=== PATIENT | male | born 1965 | race Caucasian/White ===

== ENCOUNTER 2023-07-31 12:12 | Emergency (ER) | payer OTHER, SELFPAY ==
--- OUTSIDE RECORDS SUMMARY | 2023-07-31 12:16 | XMS REPORT | Continuity of Care Document ---
Author Name Unknown Address [address] [facility] [address] [place] [address] [facility] thconnect Address [address] [facility] [address] [place] [address] Care Team Providers Care Primary Teaching Assistant Name Role Phone Praful Joiner MD Primary Care Physician [phone] Praful Joiner MD Attending Clinician [phone] PRAFUL JOINER Attending Clinician Unavailable Doctor Unassigned, [place] Attending Clinician U navailable NWATHAD ACA Attending Clinician Unavailable AMY LAGUERRE Attending Clinician Unavailable AMY LAGUERRE Attending Clinician Unavailable Lab, Ang - Db Attending Clinician Unavailable Mei Canela Attending Clinician [phone] MEI MURPHY Attending Clinician Unavailable THIAGO TAYLOR Attending Clinician Unavailable Thiago Covarrubias Attending Clinician [phone] Payers Payer Name Policy Type Policy Number Effective Date Expirati on Date Source Problems Condition Name Condition Details Condition Category Status Onset Date Resolution Date Last Treatment Date Treating Clinician Comments Source Acute left-sided low back pain without sciatica Acute left-sided low back pain without sciatica Disease Active 2021-04-11 00:00: 00 [facility] Depression , unspecifie d depression type Depression , unspecifie d depression type Disease Active 2020-04 0 00:00: 00 [facility] Insomnia, unspecifie d type Insomnia, unspecifie d type Disease Active 2020-04 0 00:00: 00 [facility] Primary hypertensi on Primary hypertensi on Disease Active 2020-04 020 00:00: 00 [facility] Allergies, Adverse Reactions, Alerts Allergy Name Allergy Type Status Severity Reaction(s) Onset Date Inactive Date Treating Clinician Comments Source Sulfa (Sulfona mide Antibiot ics) Propensi ty to adverse reaction s Active Anaphylaxis 09-19 00:00: 00 [facility] SULFA (SULFONA MIDE ANTIBIOT ICS) Drug Class Active High Anaphylaxis 09-19 00:00: 00 [facility] Social History Social Habit Start Date Stop Date Quantity Comments Source History of tobacco use Cigarette Smoker [facility] Alcohol intake 2023-05-04 00:00:00 2023-05-04 00:00:00 Ex-drinker (finding) [facility] History of Social function 2023-05-04 00:00:00 2023-05-04 00:00:00 [facility] Exposure to SARS-CoV-2 (event) 2022-06-22 00:00:00 2022-07-02 15:08:00 Not sure [facility] Cigarettes smoked current (pack per day) - Reported 2020-09-19 00:00:00 2020-09-19 00:00:00 [facility] Cigarette pack-years 2020-09-19 00:00:00 2020-09-19 00:00:00 [facility] Tobacco use and exposure 2020-09-19 00:00:00 2020-09-19 00:00:00 Smokeless tobacco non-user [facility] Sex Assigned At 1965 00:00:00 1965 00:00:00 [facility] Smoking Status Start Date Stop Date Source Smokes tobacco daily 2020-09-19 00:00:00 [facility] Medications Ordered Medication Name Filled Medication Name Start Date Stop Date Current Medication? Ordering Clinician Indication Dosage Frequency Signature (SIG) Comments Components Source traZODone 100 mg tablet 05-04 00:00: 00 Yes [id number] 100mg Take 1 tablet by mouth at bedtime. [facility] losartan 25 mg tablet 05-04 00:00: 00 Yes [id number] 25mg Take 1 tablet by mouth every morning. [facility] FLUoxetine 40 mg capsule 05-04 00:00: 00 Yes [id number] Take 1 capsule by mouth once daily in the morning [facility] atorvastati n 20 mg tablet 05-04 00:00: 00 Yes [id number] Take 1 tablet by mouth in the evening [facility] pioglitazon e 30 mg tablet 05-04 00:00: 00 Yes [id number] 30mg Take 1 tablet by mouth in the morning. [facility] metformin ER 500 mg 24 hr tablet 05-04 00:00: 00 Yes [id number] 1000mg Take 2 tablets by mouth in the morning and 2 tablets in the evening. Take with meals. [facility] gabapentin 300 mg capsule 05-04 00:00: 00 Yes [id number] 300mg Take 1 capsule by mouth in the morning and 1 capsule at noon and 1 capsule in the evening. [facility] traZODone 100 mg tablet 05-01 00:00: 00 05-04 00:00 :00 No [id number] 100mg Take 1 tablet by mouth at bedtime. [facility] traZODone 100 mg tablet 04-30 00:00: 00 05-01 00:00 :00 No [id number] 100mg Take 1 tablet by mouth at bedtime. [facility] ATORVASTATI N 20 mg tablet 2022-0415 00:00: 00 05-04 00:00 :00 No [id number] Take 1 tablet by mouth in the evening [facility] LOSARTAN 25 mg tablet 2022-04 2-15 00:00: 00 05-04 00:00 :00 No [id number] TAKE 1 TABLET BY MOUTH ONCE DAILY IN THE MORNING [facility] FLUOXETINE 40 mg capsule 2022-04 1-20 00:00: 00 05-04 00:00 :00 No Take 1 capsule by mouth once daily in the morning [facility] TRAZODONE 100 mg tablet 2022-04 1-20 00:00: 00 04-30 00:00 :00 No [id number] 100mg TAKE 1 TABLET BY MOUTH AT BEDTIME [facility] LOSARTAN 25 mg tablet 2022-04 1-10 00:00: 00 04-10 00:00 :00 No [id number] TAKE 1 TABLET BY MOUTH ONCE DAILY IN THE MORNING [facility] ATORVASTATI N 20 mg tablet 2022-04 1- 00:00: 00 04-10 00:00 :00 No [id number] Take 1 tablet by mouth in the evening [facility] TRAZODONE 100 mg tablet 2022-04 0-16 00:00: 00 03-16 00:00 :00 No [id number] 100mg TAKE 1 TABLET BY MOUTH AT BEDTIME [facility] FLUOXETINE 40 mg capsule 2022-04 0-09 00:00: 00 03-16 00:00 :00 No Take 1 capsule by mouth once daily in the morning [facility] LOSARTAN 25 mg tablet 2022-04 0-09 00:00: 00 03-06 00:00 :00 No [id number] TAKE 1 TABLET BY MOUTH ONCE DAILY IN THE MORNING [facility] ATORVASTATI N 20 mg tablet 2022-04 0-09 00:00: 00 03-06 00:00 :00 No [id number] Take 1 tablet by mouth in the evening [facility] TRAZODONE 100 mg tablet 9-18 00:00: 00 02-09 00:00 :00 No [id number] 100mg TAKE 1 TABLET BY MOUTH AT BEDTIME [facility] LOSARTAN 25 mg tablet 8- 00:00: 00 02-02 00:00 :00 No [id number] TAKE 1 TABLET BY MOUTH ONCE DAILY IN THE MORNING [facility] ATORVASTATI N 20 mg tablet 8- 00:00: 00 02-02 00:00 :00 No [id number] Take 1 tablet by mouth in the evening [facility] TRAZODONE 100 mg tablet 2022-0 8-21 00:00: 00 01-12 00:00 :00 No [id number] 100mg TAKE 1 TABLET BY MOUTH AT BEDTIME [facility] FLUOXETINE 40 mg capsule 2022-0 7-17 00:00: 00 02-02 00:00 :00 No Take 1 capsule by mouth once daily in the morning [facility] ATORVASTATI N 20 mg tablet 0 7-17 00:00: 00 12-15 00:00 :00 No [id number] Take 1 tablet by mouth in the evening [facility] LOSARTAN 25 mg tablet 2022-0 7-17 00:00: 00 12-15 00:00 :00 No [id number] TAKE 1 TABLET BY MOUTH ONCE DAILY IN THE MORNING [facility] TRAZODONE 100 mg tablet 2022-0 7-17 00:00: 00 12-15 00:00 :00 No [id number] 100mg TAKE 1 TABLET BY MOUTH AT BEDTIME [facility] TRAZODONE 100 mg tablet 2022-0 6-12 00:00: 00 11-10 00:00 :00 No [id number] 100mg TAKE 1 TABLET BY MOUTH AT BEDTIME [facility] ATORVASTATI N 20 mg tablet 2022-0 6-12 00:00: 00 11-10 00:00 :00 No [id number] Take 1 tablet by mouth in the evening [facility] LOSARTAN 25 mg tablet 2022-0 6-12 00:00: 00 11-10 00:00 :00 No [id number] TAKE 1 TABLET BY MOUTH ONCE DAILY IN THE MORNING [facility] FLUOXETINE 40 mg capsule 2022-0 6-12 00:00: 00 11-10 00:00 :00 No Take 1 capsule by mouth once daily in the morning [facility] TRAZODONE 100 mg tablet 2022-0 5-04 00:00: 00 10-06 00:00 :00 No [id number] 100mg TAKE 1 TABLET BY MOUTH AT BEDTIME [facility] ATORVASTATI N 20 mg tablet 0 5-04 00:00: 00 10-06 00:00 :00 No [id number] Take 1 tablet by mouth in the evening [facility] LOSARTAN 25 mg tablet 0 5-04 00:00: 00 10-06 00:00 :00 No [id number] TAKE 1 TABLET BY MOUTH ONCE DAILY IN THE MORNING [facility] pioglitazon e 30 mg tablet 4-17 00:00: 00 05-04 00:00 :00 No [id number] 30mg Take 1 tablet by mouth in the morning. [facility] FLUOXETINE 40 mg capsule -13 00:00: 00 10-06 00:00 :00 No Take 1 capsule by mouth once daily in the morning [facility] ATORVASTATI N 20 mg tablet 2022-0 4-05 00:00: 00 08-28 00:00 :00 No [id number] Take 1 tablet by mouth in the evening [facility] LOSARTAN 25 mg tablet 2022-0 4-05 00:00: 00 08-28 00:00 :00 No [id number] TAKE 1 TABLET BY MOUTH ONCE DAILY IN THE MORNING [facility] TRAZODONE 100 mg tablet 2022-0 4-05 00:00: 00 08-28 00:00 :00 No [id number] 100mg TAKE 1 TABLET BY MOUTH AT BEDTIME [facility] FLUOXETINE 40 mg capsule 2022-0 2-28 00:00: 00 08-07 00:00 :00 No Take 1 capsule by mouth once daily in the morning [facility] ATORVASTATI N 20 mg tablet 2022-0 2-28 00:00: 00 07-30 00:00 :00 No [id number] Take 1 tablet by mouth in the evening [facility] LOSARTAN 25 mg tablet 2022-0 2-28 00:00: 00 07-30 00:00 :00 No [id number] TAKE 1 TABLET BY MOUTH ONCE DAILY IN THE MORNING [facility] TRAZODONE 100 mg tablet 2-28 00:00: 00 07-30 00:00 :00 No [id number] 100mg TAKE 1 TABLET BY MOUTH AT BEDTIME [facility] LOSARTAN 25 mg tablet 1-19 00:00: 00 06-24 00:00 :00 No [id number] TAKE 1 TABLET BY MOUTH ONCE DAILY IN THE MORNING [facility] ATORVASTATI N 20 mg tablet 1-19 00:00: 00 06-24 00:00 :00 No [id number] Take 1 tablet by mouth in the evening [facility] TRAZODONE 100 mg tablet 1-09 00:00: 00 06-24 00:00 :00 No [id number] 100mg TAKE 1 TABLET BY MOUTH AT BEDTIME [facility] FLUOXETINE 40 mg capsule - 00:00: 00 06-24 00:00 :00 No Take 1 capsule by mouth once daily in the morning [facility] LOSARTAN 25 mg tablet 2021-04 2-15 00:00: 00 05-15 00:00 :00 No [id number] TAKE 1 TABLET BY MOUTH ONCE DAILY IN THE MORNING [facility] ATORVASTATI N 20 mg tablet 2021-04 2-15 00:00: 00 05-15 00:00 :00 No [id number] Take 1 tablet by mouth in the evening [facility] TRAZODONE 100 mg tablet 2021-04 2-15 00:00: 00 05-05 00:00 :00 No [id number] 100mg TAKE 1 TABLET BY MOUTH AT BEDTIME [facility] metformin ER 500 mg 24 hr tablet 2021-04 2-14 00:00: 00 05-04 00:00 :00 No [id number] 1000mg Take 2 tablets by mouth in the morning and 2 tablets in the evening. Take with meals. [facility] pioglitazon e 30 mg tablet 2021-04 2-14 00:00: 00 08-11 00:00 :00 No [id number] 30mg Take 1 tablet by mouth in the morning. [facility] FLUOXETINE 40 mg capsule 2021-04 00:00: 00 05-05 00:00 :00 No Take 1 capsule by mouth once daily in the morning [facility] TRAZODONE 100 mg tablet 2021-04 00:00: 00 04-10 00:00 :00 No [id number] 100mg TAKE 1 TABLET BY MOUTH AT BEDTIME [facility] cyclobenzap rine 5 mg tablet 2021-04 00:00: 00 Yes [id number] 5mg Take 1 tablet by mouth in the morning and 1 tablet at noon and 1 tablet in the evening. [facility] ibuprofen 800 mg tablet 2021-04 00:00: 00 Yes [id number] 800mg Take 1 tablet by mouth every 6 (six) hours as needed for Pain (scale 4-6). [facility] pioglitazon e 30 mg tablet 2021-04 0-03 00:00: 00 04-09 00:00 :00 No 30mg Take 1 tablet by mouth in the morning. [facility] dapaglifloz in (FARXIGA) 5 mg tablet 9-14 00:00: 00 04-02 00:00 :00 No [id number] 5mg Take 1 tablet by mouth in the morning. [facility] glimepiride (AMARYL) 4 mg tablet 8-18 00:00: 00 04-02 00:00 :00 No [id number] 4mg Take 1 tablet by mouth daily with breakfast. [facility] FLUOXETINE 40 mg capsule 7-20 00:00: 00 03-05 00:00 :00 No Take 1 capsule by mouth once daily in the morning [facility] metformin ER 500 mg 24 hr tablet 4-26 00:00: 00 04-09 00:00 :00 No [id number] 1000mg Take 2 tablets by mouth 2 (two) times daily with meals. [facility] losartan 25 mg tablet 08-19 00:00: 00 04-10 00:00 :00 No [id number] 25mg Take 1 tablet by mouth every morning. [facility] atorvastati n 20 mg tablet 08-19 00:00: 00 04-10 00:00 :00 No [id number] TAKE 1 TABLET BY MOUTH IN THE EVENING [facility] traZODone 100 mg tablet 08-19 00:00: 00 03-05 00:00 :00 No [id number] 100mg Take 1 tablet by mouth at bedtime. [facility] Immunizations Ordered Immunization Name Filled Immunization Name Date Status Comments Source Influenza Virus Vaccine Quad .5 mL IM 6+ MO 2022-03-03 00:00:00 Completed [facility] Influenza Virus Vaccine Quad .5 mL IM 6+ MO 2022-03-03 00:00:00 Completed [facility] Influenza Virus Vaccine Quad .5 mL IM 6+ MO 2022-03-03 00:00:00 Completed [facility] Influenza Virus Vaccine Quad .5 mL IM 6+ MO 2022-03-03 00:00:00 Completed [facility] Influenza Virus Vaccine Quad .5 mL IM 6+ MO 2022-03-03 00:00:00 Completed [facility] Influenza Virus Vaccine Quad .5 mL IM 6+ MO 2022-03-03 00:00:00 Completed [facility] Influenza Virus Vaccine Quad .5 mL IM 6+ MO 2022-03-03 00:00:00 Completed [facility] Influenza Virus Vaccine Quad .5 mL IM 6+ MO 2022-03-03 00:00:00 Completed [facility] Influenza Virus Vaccine Quad .5 mL IM 6+ MO 2022-03-03 00:00:00 Completed [facility] Influenza Virus Vaccine Quad .5 mL IM 6+ MO 2022-03-03 00:00:00 Completed [facility] Influenza Virus Vaccine Quad .5 mL IM 6+ MO 2022-03-03 00:00:00 Completed [facility] Influenza Virus Vaccine Quad .5 mL IM 6+ MO 2022-03-03 00:00:00 Completed [facility] Influenza Virus Vaccine Quad .5 mL IM 6+ MO 2022-03-03 00:00:00 Completed [facility] Influenza Virus Vaccine Quad .5 mL IM 6+ MO 2022-03-03 00:00:00 Completed [facility] Influenza Virus Vaccine Quad .5 mL IM 6+ MO 2022-03-03 00:00:00 Completed [facility] Influenza Virus Vaccine Quad .5 mL IM 6+ MO 2022-03-03 00:00:00 Completed [facility] Influenza Virus Vaccine Quad .5 mL IM 6+ MO 2022-03-03 00:00:00 Completed [facility] Influenza Virus Vaccine Quad .5 mL IM 6+ MO 2022-03-03 00:00:00 Completed [facility] Influenza Virus Vaccine Quad .5 mL IM 6+ MO (FLUZONE/FLULAVAL/F LUARIX) 2022-03-03 00:00:00 Completed [facility] Influenza Virus Vaccine Quad .5 mL IM 6+ MO (FLUZONE/FLULAVAL/F LUARIX) Unknown Completed [facility] Influenza Virus Vaccine Quad .5 mL IM 6+ MO (FLUZONE/FLULAVAL/F LUARIX) Unknown Completed [facility] Influenza Virus Vaccine Quad .5 mL IM 6+ MO (FLUZONE/FLULAVAL/F LUARIX) Unknown Completed [facility] Influenza Virus Vaccine Quad .5 mL IM 6+ MO (FLUZONE/FLULAVAL/F LUARIX) Unknown Completed [facility] Influenza Virus Vaccine Quad .5 mL IM 6+ MO (FLUZONE/FLULAVAL/F LUARIX) Unknown Completed [facility] Influenza Virus Vaccine Quad .5 mL IM 6+ MO (FLUZONE/FLULAVAL/F LUARIX) Unknown Completed [facility] Influenza Virus Vaccine Quad .5 mL IM 6+ MO (FLUZONE/FLULAVAL/F LUARIX) Unknown Completed [facility] Influenza Virus Vaccine Quad .5 mL IM 6+ MO (FLUZONE/FLULAVAL/F LUARIX) Unknown Completed [facility] Influenza Virus Vaccine Quad .5 mL IM 6+ MO (FLUZONE/FLULAVAL/F LUARIX) Unknown Completed [facility] Influenza Virus Vaccine Quad .5 mL IM 6+ MO (FLUZONE/FLULAVAL/F LUARIX) Unknown Completed [facility] Influenza Virus Vaccine Quad .5 mL IM 6+ MO (FLUZONE/FLULAVAL/F LUARIX) Unknown Completed [facility] Influenza Virus Vaccine Quad .5 mL IM 6+ MO (FLUZONE/FLULAVAL/F LUARIX) Unknown Completed [facility] Influenza Virus Vaccine Quad .5 mL IM 6+ MO (FLUZONE/FLULAVAL/F LUARIX) Unknown Completed [facility] Influenza Virus Vaccine Quad .5 mL IM 6+ MO (FLUZONE/FLULAVAL/F LUARIX) Unknown Completed [facility] Influenza Virus Vaccine Quad .5 mL IM 6+ MO (FLUZONE/FLULAVAL/F LUARIX) Unknown Completed [facility] Influenza Virus Vaccine Quad .5 mL IM 6+ MO (FLUZONE/FLULAVAL/F LUARIX) Unknown Completed [facility] Influenza Virus Vaccine Quad .5 mL IM 6+ MO (FLUZONE/FLULAVAL/F LUARIX) Unknown Completed [facility] Vital Signs Vital Name Observation Time Observation Value Comments S ource Systolic blood pressure 2023-05-04 20:08:00 144 mm[Hg] [facility] Diastolic blood pressure 2023-05-04 20:08:00 83 mm[Hg] [facility] Heart rate 2023-05-04 20:07:00 66 /min [facility] Respiratory rate 2023-05-04 20:07:00 18 /min [facility] Body height 2023-05-04 20:07:[address] [facility] Body weight 2023-05-04 20:07:[address] [facility] BMI 2023-05-04 20:07:00 34.39 kg/m2 [facility] Oxygen saturation in Arterial blood by Pulse oximetry 2023-05-04 20:07:00 98 /min [facility] Systolic blood pressure 2022-07-02 21:11:00 116 mm[Hg] [facility] Diastolic blood pressure 2022-07-02 21:11:00 75 mm[Hg] [facility] Heart rate 2022-07-02 21:11:00 77 /min [facility] Body height 2022-07-02 21:11:00 170.2 cm [facility] Body weight 2022-07-02 21:11:00 96.299 kg [facility] BMI 2022-07-02 21:11:00 33.25 kg/m2 [facility] Oxygen saturation in Arterial blood by Pulse oximetry 2022-07-02 21:11:00 96 /min [facility] Systolic blood pressure 2022-04-02 19:21:00 122 mm[Hg] [facility] Diastolic blood pressure 2022-04-02 19:21:00 84 mm[Hg] [facility] Heart rate 2022-04-02 19:21:00 66 /min [facility] Body height 2022-04-02 19:21:00 170.2 cm [facility] Body weight 2022-04-02 19:21:00 94.802 kg [facility] BMI 2022-04-02 19:21:00 32.73 kg/m2 [facility] Oxygen saturation in Arterial blood by Pulse oximetry 2022-04-02 19:21:00 96 /min [facility] Systolic blood pressure 2022-02-04 20:29:00 124 mm[Hg] [facility] Diastolic blood pressure 2022-02-04 20:29:00 80 mm[Hg] [facility] Heart rate 2022-02-04 20:29:00 57 /min [facility] Body height 2022-02-04 20:29:00 170.2 cm [facility] Body weight 2022-02-04 20:29:00 91.944 kg [facility] BMI 2022-02-04 20:29:00 31.75 kg/m2 [facility] Oxygen saturation in Arterial blood by Pulse oximetry 2022-02-04 20:29:00 97 /min [facility] Procedures Procedure Date / Time Performed Performing Clinicia n Source CONSENT/REFUSAL FOR DIAGNOSIS AND TREATMENT 2023-05-04 19:52:32 Doctor Unassigned, [place] [facility] HB ECG ROUTINE & RHYTHM STRIP 2022-07-02 21:42:29 Mei Murphy [facility] PATIENT FINANCIAL POLICY 2022-07-02 21:09:44 Doctor Unassigned, [place] [facility] MEDICAL RELEASE/CLEARANCE FORMS 2022-06-25 06:01:00 Doctor Unassigned, [place] [facility] POCT GLUCOSE(AGE >30DAYS) 2022-04-07 19:18:00 Amy Laguerre [facility] POCT HEMOGLOBIN A1C TEST 2022-04-02 19:22:00 Amy Laguerre [facility] SCANNED LAB RESULTS 2022-02-24 05:01:00 Doctor Jamie crawford, [place] [facility] EXTERNAL PROVIDER RECORDS 2022-01-31 05:01:00 Doctor Gloriassigned, [place] [facility] Encounters Start Date/Time End Date/Time Encounter Type Admission Type Attending Clinicians Care Facility Care Department Encounter ID Source 2023-05-13 00:00:00 2023-05-13 00:00:00 [facility] [id number] [facility] 2023-05-04 14:15:00 2023-05-04 14:30:00 [facility] [id number] [facility] 2023-05-04 14:15:00 2023-05-04 14:15:00 Outpatient R JOINER PRAFUL [facility] [id number] [facility] 2023-05-04 00:00:00 2023-05-04 00:00:00 Orders Only Doctor Daphne, [place] [facility] [id number] [facility] 2023-05-04 00:00:00 2023-05-04 00:00:00 Patient Secure Msg Doctor Unassigned, [place] [facility] CALLY [facility] [id number] [facility] 2023-05-01 00:00:00 2023-05-01 00:00:00 [facility] [id number] [facility] 2023-04-30 00:00:00 2023-04-30 00:00:00 Refill [facility] [id number] [facility] 2023-04-28 00:00:00 2023-04-28 00:00:00 Refill [facility] [id number] [facility] 2023-04-27 00:00:00 2023-04-27 00:00:00 Refill Praful Joiner [facility] [facility] DAWSON?[facility] 1.2840.114 350.1.13.10 4.2.7.2.686 [id number] 044 [id number] [facility] 2023-04-17 00:00:00 2023-04-17 00:00:[address] [facility] 1.2.840.114 350.1.13.10 4.2.7.2.686 [id number] 044 [id number] [facility] 2023-04-09 00:00:00 2023-04-09 00:00:00 Refill Praful Joiner [facility] OFF[facility] BU[facility] 1.2.840.114 350.1.13.10 4.2.7.2.686 [id number] 044 [id number] [facility] 2023-03-14 00:00:00 2023-03-14 00:00:00 RefPraful Francisco [facility] 1.2.840.114 350.1.13.10 4.2.7.2.686 [id number] 044 [id number] [facility] 2023-03-06 00:00:00 2023-03-06 00:00:00 [facility] 1.2.840.114 350.1.13.10 4.2.7.2.686 [id number] 044 [id number] [facility] 2023-02-06 00:00:00 2023-02-06 00:00:00 Reffortino Joiner [facility] BRETT?[facility] 1.2840.114 350.1.13.10 4.2.7.2.686 [id number] 044 [id number] [facility] 2023-02-02 00:00:00 2023-02-02 00:00:00 [facility] 1.2.840.114 350.1.13.10 4.2.7.2.686 [id number] 044 [id number] [facility] 2023-01-11 00:00:00 2023-01-11 00:00:00 Refill Joiner, [facility] 1.0.114 350.1.13.10 4.2.7.2.686 [id number] 044 [id number] [facility] 2022-12-15 00:00:00 2022-12-15 00:00:00 RefPraful Francisco [facility] BRETT?[facility] 1.0.114 350.1.13.10 4.2.7.2.686 [id number] 044 [id number] [facility] 2022-11-09 00:00:00 2022-11-09 00:00:00 Reffortino Joiner [facility] BRETT?[facility] 1..114 350.1.13.10 4.2.7.2.686 [id number] 044 [id number] [facility] 2022-10-10 11:30:00 2022-10-10 11:30:00 Outpatient R KEARATORIE JADON [facility] [id number] [facility] 2022-10-07 11:00:00 2022-10-07 11:00:00 Outpatient R KEARATORIE JADON [facility] [id number] [facility] 2022-10-06 00:00:00 2022-10-06 00:00:00 Michelle Joiner [facility] BRETT?[facility] 1.84.114 350.1.13.10 4.2.7.2.686 [id number] 044 [id number] [facility] 2022-10-03 00:00:00 2022-10-03 00:00:00 Michelle [facility] 1.84.114 350.1.13.10 4.2.7.2.686 [id number] 044 [id number] [facility] 2022-08-27 00:00:00 2022-08-27 00:00:00 Refill J[facility]ani [facility] MED[facility] OFF[facility] BUILD[facility] 1.2.840.114 350.1.13.10 4.2.7.2.686 [id number] 044 [id number] [facility] 2022-08-10 00:00:00 2022-08-10 00:00:00 Telephone Amy Laguerre [facility] OFF[facility] BUILD[facility] 1.2.840.114 350.1.13.10 4.2.7.2.686 [id number] [facility] 2022-08-06 00:00:00 2022-08-06 00:00:00 Refill Jelani [facility] BRETT?[facility] 1.2.840.114 350.1.13.10 4.2.7.2.686 [id number] 044 [id number] [facility] 2022-08-06 00:00:00 2022-08-06 00:00:00 Refill Amy Laguerre [facility] BRETT[facility] 1.2.840.114 350.1.13.10 4.2.7.2.686 [id number] [facility] 2022-08-04 10:30:00 2022-08-04 10:30:00 Outpatient R [facility] [id number] [facility] 2022-07-28 00:00:00 2022-07-28 00:00:00 Refill Kaela, [facility] BRETT?[facility] MED[facility] OFF[facility] BUILDING 1.2.840.114 350.1.13.10 4.2.7.2.686 [id number] [facility] 2022-07-28 00:00:00 2022-07-28 00:00:00 Refill Jelani [facility] BRETT?[facility] 1.114 350.1.13.10 4.2.7.2.686 [id number] 044 [id number] [facility] 2022-07-11 00:00:00 2022-07-11 00:00:00 Patient Secure Msg Doctor Unassigned, [place] [facility] CALLY DAWSON?[facility] 1.114 350.1.13.10 4.2.7.2.686 [id number] 044 [id number] [facility] 2022-07-03 00:00:00 2022-07-03 00:00:00 Telephone Praful Joiner [facility] 1.114 350.1.13.10 4.2.7.2.686 [id number] 044 [id number] [facility] 2022-07-02 17:00:00 2022-07-02 17:15:00 Television Cameraman Visit Lab, Ang - Mei Harvey [facility] BRETT?[facility] 1.114 350.1.13.10 4.2.7.2.686 [id number] [facility] 2022-07-02 15:30:00 2022-07-02 16:07:21 Outpatient R MEI MURPHY [facility] [id number] [facility] 2022-07-02 15:30:00 2022-07-02 16:07:21 Office Visit Mei Murphy [facility] 1.114 350.1.13.10 4.2.7.2.686 [id number] 044 [id number] [facility] 2022-07-02 00:00:00 2022-07-02 00:00:00 Telephone Mei Murphy [facility] 1.114 350.1.13.10 4.2.7.2.686 [id number] 044 [id number] [facility] 2022-07-02 00:00:00 2022-07-02 00:00:00 Orders Only Doctor Unassigned, [place] [facility] 1.2840.114 350.1.13.10 4.2.7.2.686 [id number] [id number] [facility] 2022-06-26 00:00:00 2022-06-26 00:00:00 Telephone Jelani [facility] BRETT?[facility] 1.2840.114 350.1.13.10 4.2.7.2.686 [id number] 044 [id number] [facility] 2022-06-25 00:00:00 2022-06-25 00:00:00 Orders Only Doctor Unassigned, [place] [facility] 1.2840.114 350.1.13.10 4.2.7.2.686 [id number] [id number] [facility] 2022-06-23 00:00:00 2022-06-23 00:00:00 Refill Jelani [facility] BRETT?[facility] 1.2840.114 350.1.13.10 4.2.7.2.686 [id number] 044 [id number] [facility] 2022-05-14 00:00:00 2022-05-14 00:00:00 Refill Joiner [facility] BRETT[facility] MED[facility] OFFICE BUILDING 1.2840.114 350.1.13.10 4.2.7.2.686 [id number] 044 [id number] [facility] 2022-05-03 00:00:00 2022-05-03 00:00:00 Refill Jelani [facility] BRETT[facility] MED[facility] OFFICE BUILDING 1.2840.114 350.1.13.10 4.2.7.2.686 [id number] 044 [id number] [facility] 2022-04-10 00:00:00 2022-04-10 00:00:00 Reffortino Joiner [facility] BRETT?[facility] 1.2.840.114 350.1.13.10 4.2.7.2.686 [id number] 044 [id number] [facility] 2022-04-09 00:00:00 2022-04-09 00:00:00 Telephone Amy Laguerre [facility] BRETT?[facility] 1..840.114 350.1.13.10 4.2.7.2.686 [id number] [facility] 2022-04-03 00:00:00 2022-04-03 00:00:00 Refill Jelani [facility] BRETT?[facility] 1.840.114 350.1.13.10 4.2.7.2.686 [id number] 044 [id number] [facility] 2022-04-02 13:30:00 2022-04-02 14:07:11 Outpatient R AMY [facility] [id number] [facility] 2022-04-02 13:30:00 2022-04-02 14:07:11 Office Visit KaelaAmy [facility] BRETT?[facility] 1.2.840.114 350.1.13.10 4.2.7.2.686 [id number] [facility] 2022-03-02 00:00:00 2022-03-02 00:00:00 Michelle Joiner [facility] BRETT[facility] MED[facility] OFFICE BUILDING 1.2.840.114 350.1.13.10 4.2.7.2.686 [id number] 044 [id number] [facility] 2022-02-24 00:00:00 2022-02-24 00:00:00 Orders Only Doctor Unassigned, [place] [facility] 1..114 350.1.13.10 4.2.7.2.686 [id number] 009 [id number] [facility] 2022-02-18 00:00:00 2022-02-18 00:00:00 Telephone Jelani [facility] MEDICAL OFFICE BUILDING 1.114 350.1.13.10 4.2.7.2.686 [id number] 044 [id number] [facility] 2022-02-04 15:30:00 2022-02-04 15:56:34 Outpatient R THIAGO TAYLOR [facility] [id number] [facility] 2022-02-04 15:30:00 2022-02-04 15:56:34 Office Visit Thiago Taylor [facility] 1.114 350.1.13.10 4.2.7.2.686 [id number] 044 [id number] [facility] 2022-02-04 00:00:00 2022-02-04 00:00:00 Refill Jelani [facility] 1.114 350.1.13.10 4.2.7.2.686 [id number] 044 [id number] [facility] 2022-01-31 00:00:00 2022-01-31 00:00:00 Orders Only Doctor Unassigned, [place] [facility] 1.114 350.1.13.10 4.2.7.2.686 [id number] 009 [id number] [facility] 2022-01-22 00:00:00 2022-01-22 00:00:00 Telephone Jelani [facility] 1.114 350.1.13.10 4.2.7.2.686 [id number] 044 [id number] [facility] 2022-01-07 00:00:00 2022-01-07 00:00:00 Telephone Praful Joiner [facility] OFF[facility] BUILD[facility] 1.2840.114 350.1.13.10 4.2.7.2.686 [id number] 044 [id number] [facility] 2021-12-12 12:15:00 2021-12-12 12:30:00 Office Visit [facility] 1.2840.114 350.1.13.10 4.2.7.2.686 [id number] 044 [id number] [facility] 2021-12-12 12:15:00 2021-12-12 12:15:00 Outpatient R PRAFUL JOINER [facility] [id number] [facility] 2021-12-12 00:00:00 2021-12-12 00:00:00 Telephone Jelani [facility] BRETT?[facility] 1.840.114 350.1.13.10 4.2.7.2.686 [id number] 044 [id number] [facility] 2021-12-06 00:00:00 2021-12-06 00:00:00 Telephone Praful Joiner [facility] 1.2840.114 350.1.13.10 4.2.7.2.686 [id number] 044 [id number] [facility] 2021-12-05 00:00:00 2021-12-05 00:00:00 Letter (Out) [facility] 1.2840.114 350.1.13.10 4.2.7.2.686 [id number] 044 [id number] [facility] 2021-12-05 00:00:00 2021-12-05 00:00:00 Telephone Heriberto [facility] 1.0.114 350.1.13.10 4.2.7.2.686 [id number] 044 [id number] [facility] 2021-12-04 12:30:00 2021-12-04 13:27:15 Office Visit [facility]iberto [facility] 1.0.114 350.1.13.10 4.2.7.2.686 [id number] 044 [id number] [facility] 2021-12-04 12:30:00 2021-12-04 13:27:15 Outpatient R PRAFUL JOINER [facility] [id number] [facility] 2021-12-04 12:30:00 2021-12-04 12:30:00 Outpatient R PRAFUL JOINER [facility] [id number] [facility] 2021-11-13 00:00:00 2021-11-13 00:00:00 Refill Jelani [facility] BRETT?[facility] 1.0.114 350.1.13.10 4.2.7.2.686 [id number] 044 [id number] [facility] 2021-08-20 00:00:00 2021-08-20 00:00:00 Telephone Praful Joiner [facility] 1.0.114 350.1.13.10 4.2.7.2.686 [id number] 044 [id number] [facility] 2021-08-19 10:00:00 2021-08-19 10:15:00 Television Cameraman Visit Lab, Brad Jamil Jelani [facility] 1.840.114 350.1.13.10 4.2.7.2.686 [id number] [facility] 2021-08-19 10:00:00 2021-08-19 10:00:00 Outpatient R PRAFUL JOINER [facility] [id number] [facility] 2021-08-19 08:45:00 2021-08-19 09:13:16 Office Visit Heriberto [facility] MEDICAL OFFICE BUILDING 1..840.114 350.1.13.10 4.2.7.2.686 [id number] 044 [id number] [facility] 2021-08-19 08:45:00 2021-08-19 09:13:16 Outpatient R PRAFUL JOINER [facility] [id number] [facility] 2021-08-19 08:45:00 2021-08-19 08:45:00 Outpatient R PRAFUL JOINER [facility] [id number] [facility] 2021-08-19 00:00:00 2021-08-19 00:00:00 Refill [facility] 1..840.114 350.1.13.10 4.2.7.2.686 [id number] 044 [id number] [facility] 2021-05-28 00:00:00 2021-05-28 00:00:00 Refill Praful Joiner [facility] 1.2.840.114 350.1.13.10 4.2.7.2.686 [id number] 044 [id number] [facility] 2021-04-30 00:00:00 2021-04-30 00:00:00 Refill [facility] 1..840.114 350.1.13.10 4.2.7.2.686 [id number] 044 [id number] [facility] 2021-04-27 00:00:2021-04-27 00:00:00 Orders Only Doctor Unassigned, [place] [facility] 1.114 350.1.13.10 4.2.7.2.686 [id number] 009 [id number] [facility] 2021-02-14 00:00:00 2021-02-14 00:00:00 Telephone [facility] 1..114 350.1.13.10 4.2.7.2.686 [id number] 044 [id number] [facility] 2021-02-13 14:48:37 2021-02-13 15:03:37 [facility] 1..114 350.1.13.10 4.2.7.2.686 [id number] 044 [id number] [facility] 2021-02-13 14:45:00 2021-02-13 14:45:00 Outpatient R PRAFUL JOINER [facility] [id number] [facility] 2021-02-12 00:00:00 2021-02-12 00:00:00 Refill Joiner [facility] Brett[facility] 1.114 350.1.13.10 4.2.7.2.686 [id number] 044 [id number] [facility] 2021-01-16 00:00:00 2021-01-16 00:00:00 Refill Jelani [facility] Brett?[facility] Medical Office Building 1..114 350.1.13.10 4.2.7.2.686 [id number] 044 [id number] [facility] 2020-09-19 10:08:47 2020-09-19 10:23:47 Office [facility] Office [facility] One 1..114 350.1.13.10 4.2.7.2.686 [id number] 044 [id number] [facility] 2020-09-19 10:15:00 2020-09-19 10:15:00 Outpatient Linette PRAFUL JOINER [facility] [id number] [facility] 2020-09-19 00:00:00 2020-09-19 00:00:00 Orders Only Doctor Unassigned, [place] [facility] 1.2.840.114 350.1.13.10 4.2.7.2.686 [id number] 009 [id number] [facility] Results Test Description Test Time Test Comments Results Result Co mments Source [facility] [id number] 19:22:00* Test Item Value Reference Range Interpretation Comme nts POCT HBA1C (test code = 4548-4) 6.4 % 4-6 A Lab Interpretation (test cod e = 86167-1) Abnormal [facility] HEMOGLOBIN A1C [id number] 19:22:00* Test Item Value Reference Range Interpretation Comme nts POCT HBA1C (test code = 4548-4) 6.4 % 4-6 A Lab Interpretation (test cod e = 78228-8) Abnormal [facility] HEMOGLOBIN A1C [id number] 19:22:00* Test Item Value Reference Range Interpretation Comme nts POCT HBA1C (test code = 4548-4) 6.4 % 4-6 A Lab Interpretation (test cod e = 45204-7) Abnormal [facility] Notes Date/Time Note Provider Source 2023-05-13 16:56:59 41bRhjwqat3q+cFLVGAQBO5spV/uvxjgBRM 6RVu2O713SMfeBT9Qs/3OZF5Xrp/t7009-2 05-13T16:56:59 Contacted patient to discuss lab results, patient verbalized understanding. 01575-8Llesmhkxd encounter JmmaVA4429-53-57K79:57:17Telephone encounter NoteTXT1.2.840.086248.1.13.104.2.7. 2.143763|[id number] for patient jgvw92825-4XeorUFYRXXFZKMISmvaqbbhb C-CDA narrative zsco304680674Kmlletax Y Ruiz [id number] 7MFBSVZLAGCCQFOLPGWIQLZ1607-19-33B6 6:57:171.2.840.099190.1.72.3.15|1.2 .840.286620.1.13.104.2.7.2.727879_2 [id number] Shelia Abad [facility] 2023-05-13 16:41:41 2ULFABJy++4h1ga8XHKU9SQlPWL+mAn4EYR q9ffevRxYAkkxTFg83bbzdOcQRBEx1156-1 6:41:41 Merrick Calle is a 57 year old malePt returning missed call to go over lab results.[phone] (home) 28210-6Bjjuikjqx encounter PvacJO9132-62-71L30:43:33Telephone encounter NoteTXT1.2.840.929475.1.13.104.2.7. 2.394484|4969186274EOOakixxwft for patient fuop71483-7EarcWMAYELWVWFYLmheaxtzb C-CDA narrative slti125514016Hcrgah D phil[id number] 8PJZETQCURPNTPWKKIISETZ7857-73-71O0 6:43:331.2.840.917044.1.72.3.15|1.2 .840.526683.1.13.104.2.7.2.727879_2 [id number] Jazz Paredes [facility] 2023-05-04 10:05:25 TLoOq4U1YXywZvXik41qHkKRCSFypvEiPja ZSzxLM2K0CGM2QTYE/00IhBNESkn13639-1 05-04T10:05:25 Unable to reach patient via phone. Mychart message left as well to schedule with Endocrinology. 85365-3Tkpkslmpw encounter PkfdER5178-53-09G81:05:55Telephone encounter NoteTXT1.2.840.313643.1.13.104.2.7. 2.324098|7313015065BCXsqdzeqnc for patient assn24100-7OwrlRTUJUAXPGYZCwzntbllx C-CDA narrative zxnv824095120Jppjgxew [address] QxvcTzwwqatamUhrintmvxFKEL974681010 1WLKXPNJSLSUMHYWMSUBCUE9487-14-20O4 0:05:551.2.840.802822.1.72.3.15|1.2 .840.262119.1.13.104.2.7.2.727879_1 [id number] Radha Gloverkitty [facility] 2023-05-01 20:45:40 lQH/PosUDfWYEQUgR9dEVIRHJD2m1A7FU68 VfvG5/wSU3AlsD3p+HsmNEMlmVsxi2712-6 05-01T20:45:40 Patient does not aparicio any appointment with amalgamator .Will need to make an appointment.ARA : 04/02/2022NOV : NONE 00141-4Dlftassxe encounter MsvoPH1387-35-85X41:48:33Telephone encounter NoteTXT1.2.840.422415.1.13.104.2.7. 2.977746|[id number] for patient oeey55617-1LroyIGXORUVABKFGkrvkfnos C-CDA narrative textIM-ENDOCRINOLOGY,DIABETES & METABOLISMIM-ENDOCRINOLOGY,DIABETES & METABOLISM[address] FmbvXddz[id number] 3SFPTAKVYORDZCYSCYGDSGM7772-64-39O9 0:48:331.2.840.409635.1.72.3.15|1.2 .840.062043.1.13.104.2.7.2.727879_1 [id number] IM-ENDOCRINOLOGY,D IABETES & METABOLISM [facility] 2023-05-01 15:28:15 abGSrf8b7DIQkPrwNzNc8uBCCLrcxD+FxKh 3Lwv1M5ZvIOk37DVUiNzH399imPqm5241-6 5:28:15 Patient is requesting refill of pioglitazone. Routing to prescribing provider.Recent VisitsDate Type Provider Dept07/02/22 Office Visit Mei Murphy PA [facility] Med02/04/22 Office Visit Thiago Taylor FNP [facility] Med12/12/21 [facility] Visit Praful Joiner MD [facility] MedShowing recent visits within past 540 days with a meds authorizing provider and meeting all other requirementsFuture AppointmentsDate Type Provider Dept05/04/23 [facility]ointment [facility] future appointments within next 150 days with a meds authorizing provider and meeting all other requirements 87847-1Tnocnwfqq encounter OarqMM3957-75-15K39:28:57Telephone encounter NoteTXT1.2.840.835106.1.13.104.2.7. 2.019492|[id number] for patient yein82445-3ShnsHVUBBXFMZZDKclesexar C-CDA narrative [id number] 8BMOZYOHWKISHEXMWWLUOGO4746-36-28E5 5:28:571.2.840.954786.1.72.3.15|1.2 .840.154020.1.13.104.2.7.2.727879_1 [id number] [facility] 2023-05-01 14:44:18 IS6B4GCcer2OFzABEH3otp4FpuqMqmokwSb xbXvqg91+2JkBwhFunbd0OLLzkm6j8437-3 4:44:18 Merrick Calle is a 57 year old malePt called and states that his medication is needing to be re- sent to the [facility] in . Pt is also requesting a courtesy refill until his next appointment. Please advise. Call back number: [phone] signed by Janet Pearson at 05/01/2023 2:46 PM SEY32029-4Zbhepmzpl encounter YyacSR4619-74-01V60:46:33Telephone encounter NoteTXT1.2.840.512663.1.13.104.2.7. 2.011445|[id number] for patient fgjt77802-4HmubDGFBSEIZBQECjigtpoex C-CDA narrative [id number] 2JNCBUOEMSXNLPSKDLBGMDN9824-47-10C4 4:46:331.2.840.641514.1.72.3.15|1.2 .840.537373.1.13.104.2.7.2.727879_1 [id number] [facility] 2023-04-30 14:41:58 UexAMlbdgTLsWy5Zw1Avs4uM60NiADmjZUT 1Kn7J01TnhVAnBdV+h/aVeysl5AyD0292-3 04-30T1:41:58 Images from the original note were not included.Requested RenewalstraZODone 100 mg tabletPossible duplicate: Hover to review recent actions on this medicationSig: Take 1 tablet by mouth at bedtime.Disp: 30 tablet Refills: 0Start: 04/30/2023lass: eRXFor: Insomnia, unspecified typeLast ordered: 1 month ago (03/16/2023) by Praful Joiner [facility] Antidepressants Irnsub4704/30/2023 02:22 PMProtocol Details Manual Review: Verify no changes in dose in the last 3 monthsValid encounter within last 12 monthsTo be filled at: [id number] [facility] DRIVERecent VisitsDate Type Provider Dept07/02/22 Office Visit Mei Murphy PA [facility] Med02/04/22 Office Visit Thiago Taylor FNP [facility] Med12/12/21 Office Visit Praful Joiner MD [facility] Med12/04/21 Office Visit Praful Joiner MD [facility] MedShowing recent visits within past 540 days with a meds authorizing provider and meeting all other requirementsFuture AppointmentsDate Type Provider Dept05/04/23 Appointment Praful Joiner MD [facility] MedShowing future appointments within next 150 days with a meds authorizing provider and meeting all other requirements 66202-6Gkjcxltia encounter XxnkVR8245-34-69S70:42:06Telephone encounter NoteTXT1.2.840.620441.1.13.104.2.7. 2.192413|[id number] for patient vwhk95065-9ZjkqMPFYPXHCBYZZajakcwdr C-CDA narrative textUTMBUTMB - [address]Bo[id number] 8PRDXFJNVWIZKKBOOQOHCQH8921-14-03T9 4:42:061.2.840.889361.1.72.3.15|1.2 .840.596532.1.13.104.2.7.2.727879_1 [id number] [facility] 2023-04-30 14:21:05 jkQVW8Iv64SJTWiyXqEX/Wem6tocxcz56/A l3NzIb3oaV8qL0Pq6LG+3CfBxDpGe3191-8 04-30T14:21:05 Merrick Calle is a 57 year old male is calling to see if since he has an appointment on 05/04 if he can get the prescription filled for TRAZODONE 100 mg 66621-1Oynoetcnk encounter VtowZJ9061-07-99Y86:22:59Telephone encounter NoteTXT1.2.840.139235.1.13.104.2.7. 2.085545|[id number] for patient evbn49005-5HqzgZAFFSRMKCZXHrbkjlnmr C-CDA narrative [address] Lk[id number] 4MGTIDDWKAGQKHYKBGHZUZT4861-03-98A0 4:22:591.2.840.389634.1.72.3.15|1.2 .840.917829.1.13.104.2.7.2.727879_1 [id number] [facility] 2023-01-12 08:56:02 7QmriZY5mHdUTDIMOovOiGmecZP2GcgY8bb pF8BC8MG1ieotwHxMApJYElCvEnGk1300-5 01-12T08:56:02 Images from the original note were not included.Requested Renewals Name from pharmacy: traZODone HCl 100 MG Oral Tablet Will file in chart as: TRAZODONE 100 mg tablet Sig: TAKE 1 TABLET BY MOUTH AT BEDTIME Disp: 30 tablet Refills: 0 Start: 01/11/2023 Class: eRX For: Insomnia, unspecified type Last ordered: 4 weeks ago (12/15/2022) by Praful Joiner MD Last refill: 12/16/2022 Rx #: [id number] Psychiatry: Antidepressants Failed 01/11/2023 11:39 AM Protocol Details Manual Review: Verify no changes in dose in the last 3 months Valid encounter within last 12 months To be filled at: [facility] [address] [place] [address] Recent VisitsDate Type Provider Dept 07/02/22 Office Visit Mei Murphy PA [facility] 02/04/22 Office Visit Thiago Taylor FNP [facility] 12/12/21 Office Visit Praful Joiner MD [facility] 12/04/21 Office Visit Praful Joiner MD [facility] 08/19/21 Office Visit Praful Joiner MD [facility] Showing recent visits within past 540 days with a meds authorizing provider and meeting all other requirementsFuture AppointmentsNo visits were found meeting these conditions.Showing future appointments within next 150 days with a meds authorizing provider and meeting all other requirements 52871-6Ewpandvdf encounter ZtkxBW7050-20-25K84:56:10Telephone encounter NoteTXT1.2.840.819719.1.13.104.2.7. 2.533059|[id number] for patient qrde18052-1PjljZXCGSLPUVP[address] Rs[id number] 4DZPLDCNAKJVMOSIRMMMOZI8394-52-21R7 8:56:101.2.840.676866.1.72.3.15|1.2 .840.918191.1.13.104.2.7.2.727879_1 [id number] [facility]"
[2023-07-31 12:48] LABS: Absolute Eosinophils 0.1 K/uL (0-0.5); Absolute Lymphocytes (CBC) 1.9 K/uL (0.7-4.9); Absolute Monocytes 0.5 K/uL (0.1-1.3); Absolute Neutrophil 4.8 K/uL (1.8-8.0); Basophils % 0.5 % (0-1.3); Eosinophils % 1.1 % (0-4.4); Hemoglobin 13.8 g/dL (13.6-17.9); Lymphocytes % 26.1 % (15.3-44.8); MCH 30.2 pg (27.0-35.0); MCHC 33.7 g/dL (32.0-36.0); MCV 89.8 fL (80-100); Monocytes % 7.1 % (3.3-12.3); Neutrophils % 65.2 % (41.7-73.7); Platelets 207 thou/uL (152-406); RBC Red Blood Cell Count 4.56 M/uL (4.33-5.43); Red Cell Distribution Width 14.8 % (12.1-15.2)
[2023-07-31 13:04] LABS: Albumin 3.5 g/dL (3.4-5.0); Albumin/Globulin Ratio 1.1 (1.1-1.8); Anion Gap 8.2 mEq/L (5.0-15.0); Bilirubin Total 0.6 mg/dL (0.2-1.0); Globulin 3.1 g/dL (2.3-3.5); Potassium 3.2 mEq/L (3.5-5.1); Protein, Total 6.6 g/dL (6.4-8.2)
--- NOTE | 2023-07-31 13:33 | RAD REPORT ---
EXAM DESCRIPTION: CTAbdomen Pelvis W Contrast - 07/31/2023 1:18 pm CLINICAL HISTORY: ABD PAIN COMPARISON: CT ABD PELVIS W CONTRAST dated 10/29/2007 TECHNIQUE: CT of the abdomen and pelvis was performed. All CT scans are performed using dose optimization technique as appropriate and may include automated exposure control or mA/KV adjustment according to patient size. FINDINGS: Lower chest: No acute abnormality. Liver: No acute abnormality or suspicious lesions. Hepatic steatosis Biliary: No biliary ductal dilatation. Stomach: No significant focal abnormality. Duodenum: No significant focal abnormality. Pancreas: No significant abnormality. Spleen: No significant abnormality. Adrenal: No suspicious lesions. Kidney/ureter: No hydronephrosis. Bilateral nephrolithiasis. The largest stone measures 7 millimeters in the right upper pole. The largest stone on the left measures 3 millimeters. Too small to characte rize and/or benign appearing renal lesions are noted. Retroperitoneum: No retroperitoneal adenopathy. Vascular: No aneurysm. Atherosclerosis . Bowel: Colorectal anastomosis. Diverticulosis without diverticulitis. Normal appendix. Peritoneum: No ascites or free air. Bladder: Grossly unremarkable. Reproductive: No adnexal masses. Bones: No acute fracture. Pars defects at L5. Other: n/a IMPRESSION: No acute intra-abdominal or pelvic finding. Normal appendix . Nonobstructive bilateral n ephrolithiasis.
--- NOTE | 2023-07-31 14:03 | EDPHYS ---
Physician Documentation [facility] Name: Jaret Calle Age: 57 yrs Sex: Male : 1965 Arrival Date: 07/31/2023 Time: 12:12 Bed 19 Private MD: ED Physician Guillermo Castañeda HPI: 07/30 12:24 This 57 yrs old Male presents to ER via Unassigned with complaints of Flank Pain. bo1 12:27 Abd pain the left side - past 3 days. Said his PCP is off this weekend. Hx of bo1 diverticulitis and partial colectomy.. Historical: - Allergies: 12:29 Sulfa (Sulfonamide Antibiotics); ll1 - PMHx: 12:29 Diverticulitis; Diabetes mellitus; Hypertensive disorder; Hypercholesterolemia; ll1 neuropathy; - PSHx: 12:29 colon resection; ll1 - Immunization history:: Adult Immunizations up to date. - Infectious Disease History:: Denies. CDIFF, C. Auris, ESBL, MRSA (w/in 1 year), VRE (w/in 1 year), TB, . - Social history:: Smoking status: Patient reports the use of cigarette tobacco products, smokes one pack cigarettes per day. ROS: 12:26 Constitutional: Negative for chills, fever, poor PO intake, bo1 12:26 Abdomen/GI: Positive for abdominal pain, abdominal distension, "bloating", Negative for Exam: 13:29 Constitutional: The patient appears in no acute distress, alert, awake, comfortable, bo1 well developed, well nourished, 13:29 Eyes: Sclera: no appreciated abnormality, no acute changes, 13:29 Neck: External neck: is normal, Lymph nodes: no appreciated lymphadenopathy, 13:29 Cardiovascular: Heart sounds: normal, normal S1and S2, 13:29 Abdomen/GI: Palpation: soft, mild abdominal tenderness, in the anterior aspect of left lateral abdomen, no appreciated organomegaly, No guarding or rebound., 13:29 Back: CVA tenderness, is absent, 13:29 Skin: Appearance: Color: normal in color, No diaphoresis, Vital Signs: 12:30 BP 160 / 92; Pulse 69; Resp 18; Temp 98.3; Pulse Ox 96% ; Weight 96.16 kg; Height 5 ft. ll1 7 in. ; Pain 6/10; 14:39 BP 155 / 87; Pulse 67; Resp 18; Pulse Ox 98% ; cp4 12:30 Body Mass Index 33.20 (96.16 kg, 170.18 cm) ll1 12:30 Pain Scale: Adult ll1 MDM: 13:28 ED course: Pt has elected not to get "pain" meds.. ED course: Pt's taken to radiology [facility] dept for the CT scan.. 13:33 Differential diagnosis: UTI, diverticulitis. bo1 13:41 Patient medically screened. bo1 13:59 Data reviewed: lab test result(s), radiologic studies, CT scan, with pt and family in [facility] the room. No hospitalization or surgery indicated. OP mgmt and F/U recommended.. 07/30 12:26 Order name: CBC with Diff; Complete Time: 13:12 bo1 07/30 12:26 Order name: CMP; Complete Time: 13:12 bo 07/30 12:26 Order name: Lipase; Complete Time: 13:12 bo 07/30 12:26 Order name: CT Abd/Pelvis - IV Contrast Only; Complete Time: 13:53 bo1 07/30 12:26 Order name: IV Saline Lock; Complete Time: 12:43 bo1 07/30 12:26 Order name: Labs collected and sent; Complete Time: 12:43 bo1 Administered Medications: No medications were administered Disposition Summary: 07/31/23 14:03 Discharge Ordered Notes: Location: Home bo1 Problem: new bo1 Symptoms: are unchanged bo1 Condition: Stable bo1 Diagnosis - Diverticulosis of large intestine without perforation or abscess without bleeding bo1 - Unspecified renal colic bo1 - Calculus of kidney bo1 Followup: bo1 - With: Private Physician - When: 1 week - Reason: Discharge Instructions: - Discharge Summary Sheet bo1 - Diverticulosis bo1 - Kidney Stones bo1 Forms: - Medication Reconciliation Form bo1 - Thank You Letter bo1 - Antibiotic Education bo1 - Prescription Opioid Use bo1 - Patient Portal Instructions bo1 - Leadership Thank You Letter bo1 Prescriptions: - Ketorolac 10 mg tabs; 1 tab PO every 4 hours as needed. Qty: #40 No refills. - take 10 milligram ORAL route 6 times per day for 1 week; 40 tablet; Refills: 0, bo1 Product Selection Permitted Signatures: Dispatcher [employer] EDMS Kyle, Lynsay, RN RN ll1 Vielka Lawrence cp4 Guillermo Castañeda MD MD bo1
--- NOTE | 2023-07-31 14:03 | ER ---
Nurse's Notes [facility] Name: Jaret Calle Age: 57 yrs Sex: Male : 1965 Arrival Date: 07/31/2023 Time: 12:12 Bed 19 Private MD: Diagnosis: Diverticulosis of large intestine without perforation or abscess without bleeding;Unspecified renal colic;Calculus of kidney Presentation: 07/30 12:30 Chief complaint: Patient states: L sided abdominal pain for 3 days. No fever. ll1 Coronavirus screen: Client denies travel out of the [place] in the last 14 days. At this time, the client does not indicate any symptoms associated with coronavirus-19. Ebola Screen: Patient denies travel to an Ebola-affected area in the 21 days before illness onset. Initial Sepsis Screen: Does the patient meet any 2 criteria? No. Patient's initial sepsis screen is negative. Does the patient have a suspected source of infection? No. Patient's initial sepsis screen is negative. Risk Assessment: Do you want to hurt yourself or someone else? Patient reports no desire to harm self or others. Onset of symptoms was July 29, 2023. 12:30 Method Of Arrival: Ambulatory ll1 12:30 Acuity: BALTA 3 ll1 Triage Assessment: 13:26 General: Appears in no apparent distress. Behavior is calm, cooperative, appropriate cp4 for age. Historical: - Allergies: 12:29 Sulfa (Sulfonamide Antibiotics); ll1 - PMHx: 12:29 Diverticulitis; Diabetes mellitus; Hypertensive disorder; Hypercholesterolemia; ll1 neuropathy; - PSHx: 12:29 colon resection; ll1 - Immunization history:: Adult Immunizations up to date. - Infectious Disease History:: Denies. CDIFF, C. Auris, ESBL, MRSA (w/in 1 year), VRE (w/in 1 year), TB, . - Social history:: Smoking status: Patient reports the use of cigarette tobacco products, smokes one pack cigarettes per day. Screenin:43 [facility] ED Fall Risk Assessment (Adult) History of falling in the last 3 months, cp4 including since admission No falls in past 3 months (0 pts) Confusion or Disorientation No (0 pts) Intoxicated or Sedated No (0 pts) Impaired Gait No (0 pts) Mobility Assist Device Used No (0 pt) Altered Elimination No (0 pt) Score/Fall Risk Level 0 - 2 = Low Risk Oriented to surroundings, Maintained a safe environment, Assessed \T\ reinforced patient's understanding of fall precautions, Hourly rounding (assess needs \T\ fall precautionary measures) done. Abuse screen: Denies threats or abuse. Nutritional screening: No deficits noted. Tuberculosis screening: No symptoms or risk factors identified. Assessment: 12:43 General: Appears in no apparent distress. Behavior is calm, cooperative, appropriate cp4 for age. Pain: Complains of pain in left upper quadrant and left lower quadrant Pain does not radiate. GI: No deficits noted. Bowel sounds present X 4 quads. Abd is soft and non tender X 4 quads. 13:27 Reassessment: Patient back from CT. cp4 Vital Signs: 12:30 BP 160 / 92; Pulse 69; Resp 18; Temp 98.3; Pulse Ox 96% ; Weight 96.16 kg; Height 5 ft. ll1 7 in. ; Pain 6/10; 14:39 BP 155 / 87; Pulse 67; Resp 18; Pulse Ox 98% ; cp4 12:30 Body Mass Index 33.20 (96.16 kg, 170.18 cm) ll1 12:30 Pain Scale: Adult ll1 ED Course: 12:15 Patient arrived in ED. rg4 12:20 Guillermo Castañeda MD is Attending Physician. bo1 12:31 Triage completed. ll1 12:31 Arm band placed on Patient placed in an exam room, on a stretcher. ll1 12:35 Vielka Lawrence is Primary Nurse. cp4 12:43 Bed in low position. Call light in reach. Side rails up X 1. Client placed on cp4 continuous cardiac and pulse oximetry monitoring. NIBP monitoring applied. 12:43 CT Abd/Pelvis - IV Contrast Only Sent. cp4 12:43 CBC with Diff Sent. cp4 12:43 CMP Sent. cp4 12:43 Lipase Sent. cp4 12:43 No provider procedures requiring assistance completed. Initial lab(s) drawn, by wv, cp4 sent to lab. Inserted saline lock: 20 gauge in right antecubital area, using aseptic technique. Blood collected. 13:19 CT Abd/Pelvis - IV Contrast Only In Process Unspecified. EDMS 14:40 Provided Education on: kidney stones and diverticulosis. cp4 14:41 intact, bleeding controlled, No redness/swelling at site. Pressure dressing applied. cp4 Administered Medications: No medications were administered Medication: 12:43 VIS not applicable for this client. cp4 Outcome: 14:03 Discharge ordered by . bo1 14:41 Discharged to home ambulatory, cp4 14:41 Condition: stable 14:41 Discharge instructions given to patient, Instructed on discharge instructions, follow up and referral plans. medication usage, Demonstrated understanding of instructions, follow-up care, medications, Prescriptions given X 1, 14:41 Patient left the ED. cp4 Signatures: Dispatcher [employer] Juliana Barrera rg4 Mahesh Wright RN RN Vielka Bender cp4 Guillermo Castañeda MD MD bo1
[2023-07-31 15:26] VITALS: BP 155/87; TEMP 98.3; O2SAT 98
== END 2023-07-31 14:41 | disposition home or self-care (01) ==
LOC: ER 12:12
DX: K57.32 Diverticulitis of large intestine without perforation or abscess without bleeding (principal); N20.0 Calculus of kidney; N23 Unspecified renal colic; F17.210 Nicotine dependence, cigarettes, uncomplicated; Z88.2 Allergy status to sulfonamides
CPT/HCPCS: 85025; 36415; 83690; 80053; 74177; 99284; Q9967